=== PATIENT | female | born 1990 | race African-American/Black ===

== ENCOUNTER 2025-03-16 08:42 | Emergency (ER) | payer MEDICAID ==
[~2025-03-16] VITALS: Ht 172.7 cm; Wt 86.0 kg
[2025-03-16 08:46] VITALS: RESP 16; TEMP 36.9; O2SAT 99
[2025-03-16 10:06] VITALS: BP 112/58; PULSE 74
[2025-03-16] MEDS: KETOROLAC 30MG/ML VIAL IM ONE (10:06)
[2025-03-16] MEDS: CYCLOBENZAPRINE 10MG TABLET PO ONE (10:07)
[2025-03-16] MEDS ORDERED: KETO10TA2 MT (11:06)
[2025-03-16] MEDS ORDERED: CYCL10TA21 MT (11:06)
== END 2025-03-16 11:35 | disposition home or self-care (01) ==
LOC: ER 08:42
DX: M54.50 Low back pain, unspecified (principal); M54.2 Cervicalgia; V43.52XA Car driver injured in collision with other type car in traffic accident, initial encounter; Y93.89 Activity, other specified; Y92.410 Unspecified street and highway as the place of occurrence of the external cause; Y99.8 Other external cause status
CPT/HCPCS: 99283; 81025; 72100; 96372; J1885